=== PATIENT | female | born 1995 | race Hispanic/Latino ===

== ENCOUNTER 2018-05-20 02:43 | Emergency (ER) | payer SELFPAY ==
--- OUTSIDE RECORDS SUMMARY | 2018-05-20 02:46 | XMS REPORT ---
:1995 [facility] Address [address] [place] [address] Dr. Khoury [address] [place] [id number] Care Team Providers Name Role Phone Unavailable Unavailable Unavailable Problems This patient has no known problems. Allergies, Adverse Reactions, Alerts This patient has no known allergies or adverse reactions. Medications This patient has no known medications.
[2018-05-20 03:31] LABS: Absolute Lymphocytes (CBC) 0.6 K/uL (0.7-4.9); Absolute Monocytes 0.4 K/uL (0.1-1.3); Basophils % 0.2 % (0-1.3); Eosinophils % 0.2 % (0-4.4); Hematocrit 38.6 % (36.0-45.0); MPV 7.9 fL (7.6-11.3); Monocytes % 6.8 % (3.3-12.3); RBC Red Blood Cell Count 4.24 M/uL (3.86-4.86)
[2018-05-20 03:47] LABS: ALT/SGPT 18 U/L (12-78); AST/SGOT 17 U/L (15-37); Albumin 3.9 g/dL (3.4-5.0); Alkaline Phosphatase 53 U/L (45-117); BUN Blood Urea Nitrogen 7 mg/dL (7-18); Bicarbonate 23 mmol/L (21-32); Bilirubin Direct 0.1 mg/dL (0-0.2); Bilirubin Total 0.4 mg/dL (0.2-1.0); CKMB Creatine Kinase MB < 1.0 ng/mL (0.3-3.6); Creatine Phosphokinase 129 U/L (26-192); Glucose Level 110 mg/dL (74-106); Lipase 117 U/L (73-393); Potassium 3.5 mmol/L (3.5-5.1); Protein, Total 7.1 g/dL (6.4-8.2); Sodium Level 141 mmol/L (136-145); Troponin (Emerg Dept Use Only) < 0.02 ng/mL (0.0-0.045)
[2018-05-20] MEDS ORDERED: LIDOCAINE VISCOUS 2% SOLN 15 ML UDC ONE (04:47)
[2018-05-20] MEDS ORDERED: FAMOTIDINE 20 MG/2 ML VIAL IV ONE (04:47)
[2018-05-20] MEDS ORDERED: MAGNE/ALUM HYDROXD 30 ML UCUP ONE (04:47)
--- NOTE | 2018-05-20 05:30 | ER ---
Nurse's Notes [facility] Name: Alexx Ceballos Age: 22 yrs Sex: Female : 1995 Arrival Date: 05/20/2018 Time: 02:44 Bed 5 Private MD: Diagnosis: Gastritis, unspecified, without bleeding Presentation: 05/20 03:02 Presenting complaint: Patient states: intermittent central chest pain X1 day. pt c/o ak1 intermittent bilateral hand numbness X2 days. pt c/o headache X2 days. Transition of care: patient was not received from another setting of care. Onset of symptoms is unknown. Risk Assessment: Do you want to hurt yourself or someone else? Patient reports no desire to harm self or others. Initial Sepsis Screen: Does the patient meet any 2 criteria? No. Patient's initial sepsis screen is negative. Does the patient have a suspected source of infection? No. Patient's initial sepsis screen is negative. Care prior to arrival: None. 03:02 Method Of Arrival: Ambulatory ak1 03:02 Acuity: GUSTAVO 3 ak1 Triage Assessment: 03:04 Headache History: The patient has had previous headaches and this one is similar to ak1 previous episodes. General: Appears in no apparent distress. Behavior is calm, cooperative. Pain: Complains of pain in headache, chest, bilateral hands. Pain: Pain currently is 8 out of 10 on a pain scale. Pain began 2-3 days ago. Is intermittent, Also complains of sleeplessness. EENT: No deficits noted. Neuro: Level of Consciousness is awake, alert, obeys commands, Oriented to person, place, time, situation, Ballistics Expert are equal bilaterally Moves all extremities. Gait is steady, Speech is normal, Facial symmetry appears normal. Cardiovascular: Reports chest pain. Respiratory: No deficits noted. GI: No signs and/or symptoms were reported involving the gastrointestinal system. : No signs and/or symptoms were reported regarding the genitourinary system. Derm: No signs and/or symptoms reported regarding the dermatologic system. Musculoskeletal: No signs and/or symptoms reported regarding the musculoskeletal system. 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 - Social history:: Smoking status: Patient/guardian denies using tobacco. - Ebola Screening: : No symptoms or risks identified at this time. Screenin:09 Abuse screen: Denies threats or abuse. Denies injuries from another. Nutritional lp1 screening: No deficits noted. Tuberculosis screening: No symptoms or risk factors identified. Fall Risk None identified. Assessment: 03:08 General: Appears in no apparent distress. Behavior is anxious. Pain: Complains of pain lp1 in chest and epigastric area Pain currently is 8 out of 10 on a pain scale. Neuro: Level of Consciousness is awake, alert, obeys commands. Cardiovascular: Patient's skin is warm and dry. Respiratory: Respiratory effort is even, unlabored. GI: Abdomen is flat, Bowel sounds present X 4 quads. Abdomen is tender to palpation in epigastric area Reports diarrhea. : No signs and/or symptoms were reported regarding the genitourinary system. EENT: No signs and/or symptoms were reported regarding the EENT system. Derm: Skin is pink, warm \T\ dry. Musculoskeletal: No deficits noted. Vital Signs: 03:04 BP 115 / 91; Pulse 95; Resp 18; Temp 100.4(O); Pulse Ox 99% on R/A; Weight 59.87 kg ak1 (R); Height 5 ft. 2 in. (157.48 cm) (R); Pain 8/10; 06:18 BP 98 / 56; Pulse 63; Resp 16; Temp 97.8; Pulse Ox 100% on R/A; ak1 03:04 Body Mass Index 24.14 (59.87 kg, 157.48 cm) ak1 ED Course: 02:44 Patient arrived in ED. do 03:03 Triage completed. ak1 03:04 Arm band placed on Patient placed in an exam room, on a stretcher, on rn cardiac, ak1 on pulse oximetry, Patient notified of wait time. EKG completed in triage. Results shown to MD. 03:05 Jose Raul Cunningham MD is Attending Physician. tw4 03:07 Tea Liz, RN is Primary Nurse. lp1 03:09 Patient has correct armband on for positive identification. Placed in gown. Pulse ox lp1 on. NIBP on. 03:26 Inserted saline lock: 20 gauge in right antecubital area, using aseptic technique. oe Blood collected. 03:27 Flu Sent. oe 06:19 No provider procedures requiring assistance completed. IV discontinued, intact, ak1 bleeding controlled, No redness/swelling at site. Pressure dressing applied. Administered Medications: 04:39 Drug: GI Cocktail without - (Maalox Suspension 30 ml, Lidocaine Liquid 2 % 15 ak1 ml) Route: PO; 05:35 Follow up: Response: No adverse reaction ak1 04:39 Drug: Pepcid 20 mg Route: IVP; Site: right antecubital; ak1 05:35 Follow up: Response: No adverse reaction ak1 05:40 Drug: TORadol 30 mg Route: IVP; Site: right antecubital; ak1 05:40 Follow up: Response: No adverse reaction ak1 Outcome: 05:30 Discharge ordered by . tw4 06:20 Discharged to home ambulatory, with family. ak1 06:20 Condition: good 06:20 Discharge instructions given to patient, family, Instructed on discharge instructions, follow up and referral plans. no drinking with medication, no driving heavy equipment, medication usage, Demonstrated understanding of instructions, follow-up care, medications, Prescriptions given X 1. 06:20 Patient left the ED. ak1 Signatures: Tea Liz, RN RN lp1 Gita Blanco RN RN ak1 Ree Ulloa [place] oe Wadley, Terrence, MD MD tw4
--- NOTE | 2018-05-20 05:30 | EDPHYS ---
Physician Documentation [facility] Name: Alexx Ceballos Age: 22 yrs Sex: Female : 1995 Arrival Date: 05/20/2018 Time: 02:44 Bed 5 Private MD: ED Physician Jose Raul Cunningham HPI: 05/20 04:40 This 22 yrs old Female presents to ER via Ambulatory with complaints of tw4 Headache, Arm Pain, Chest Pain, Tongue Numbness. 04:40 The patient complains of pain to the forehead. The patient describes the headache as tw4 aching. Onset: The symptoms/episode began/occurred today. Associated signs and symptoms: The patient has no apparent associated signs or symptoms. Severity of symptoms: At its worst the pain was moderate, in the emergency department the pain is unchanged. The symptoms are alleviated by nothing. the symptoms are aggravated by nothing. The patient has not experienced similar symptoms in the past. 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 - Social history:: Smoking status: Patient/guardian denies using tobacco. - Ebola Screening: : No symptoms or risks identified at this time. ROS: 04:40 Constitutional: Negative for fever, chills, and weight loss, Eyes: Negative for injury, tw4 pain, redness, and discharge, Cardiovascular: Negative for chest pain, palpitations, and edema, Respiratory: Negative for shortness of breath, cough, wheezing, and pleuritic chest pain, Back: Negative for injury and pain. 04:40 Abdomen/GI: Positive for abdominal pain, Negative for nausea and vomiting, nausea, vomiting, and diarrhea, nausea, vomiting, abdominal cramps, abdominal distension, anorexia, black/tarry stool, rectal pain. Exam: 04:40 Constitutional: This is a well developed, well nourished patient who is awake, alert, tw4 and in no acute distress. Head/Face: Normocephalic, atraumatic. Chest/axilla: Normal chest wall appearance and motion. Nontender with no deformity. No lesions are appreciated. Cardiovascular: Regular rate and rhythm with a normal S1 and S2. No gallops, murmurs, or rubs. Normal PMI, no JVD. No pulse deficits. Respiratory: Lungs have equal breath sounds bilaterally, clear to auscultation and percussion. No rales, rhonchi or wheezes noted. No increased work of breathing, no retractions or nasal flaring. 04:40 Skin: Warm, dry with normal turgor. Normal color with no rashes, no lesions, and no evidence of cellulitis. MS/ Extremity: Pulses equal, no cyanosis. Neurovascular intact. Full, normal range of motion. Neuro: Awake and alert, GCS 15, oriented to person, place, time, and situation. Cranial nerves II-XII grossly intact. Motor strength 5/5 in all extremities. Sensory grossly intact. Cerebellar exam normal. Normal gait. 04:40 Abdomen/GI: Inspection: abdomen appears normal, Bowel sounds: normal, Palpation: moderate abdominal tenderness, in the epigastric area. 04:40 Abdomen/GI: Palpation: tw4 Vital Signs: 03:04 BP 115 / 91; Pulse 95; Resp 18; Temp 100.4(O); Pulse Ox 99% on R/A; Weight 59.87 kg ak1 (R); Height 5 ft. 2 in. (157.48 cm) (R); Pain 8/10; 06:18 BP 98 / 56; Pulse 63; Resp 16; Temp 97.8; Pulse Ox 100% on R/A; ak1 03:04 Body Mass Index 24.14 (59.87 kg, 157.48 cm) ak1 MDM: 03:06 Patient medically screened. tw4 04:40 Differential diagnosis: migraine, neoplasm, subarachnoid bleed, subdural hematoma, tw4 temporal arteritis, trigeminal neuralgia. Data reviewed: vital signs, nurses notes. Counseling: I had a detailed discussion with the patient and/or guardian regarding: the historical points, exam findings, and any diagnostic results supporting the discharge/admit diagnosis, lab results, radiology results. Special discussion: I discussed with the patient/guardian in detail that at this point there is no indication for admission to the hospital. It is understood, however, that if the symptoms persist or worsen the patient needs to return immediately for re-evaluation. 05:22 Data interpreted: Pulse oximetry: Interpretation: normal. Test interpretation: by ED tw4 physician or midlevel provider: ECG, plain radiologic studies. Medication response: GI Cocktail relieved the patient's pain. The symptoms have resolved. Response to treatment: the patient's symptoms have mildly improved after treatment, and as a result, I will discharge patient. Special discussion: Based on the patient's Hx, exam, and Dx evaluation, there is no indication for emergent surgery or inpatient Tx. It is understood by the patient/guardian that if the Sx's persist or worsen they need to return immediately for re-evaluation. 05/20 03:06 Order name: Flu ak1 05/20 03:06 Order name: Basic Metabolic Panel; Complete Time: 04:24 tw4 05/20 04:24 Interpretation: Normal except: CL 108; GLUC 110. tw05/20 03:06 Order name: CBC with Diff; Complete Time: 04:24 tw 05/20 04:24 Interpretation: Normal except: RDW 11.7; LYM% 10.0; OFELIA% 82.8; LYMA 0.6. tw05/20 03:06 Order name: Creatinine for Radiology; Complete Time: 04:25 tw 05/20 04:25 Interpretation: Within normal limits: CRE 0.64. 05/20 03:06 Order name: Hepatic Function; Complete Time: 04:25 05/20 04:25 Interpretation: Within normal limits. 05/20 03:06 Order name: Lipase; Complete Time: 04:25 [facility] 05/20 04:25 Interpretation: Within normal limits: LIP 117. 05/20 03:06 Order name: IV Saline Lock; Complete Time: 03:27 05/20 03:06 Order name: Troponin (emerg Dept Use Only); Complete Time: 04:25 tw4 05/20 03:06 Order name: CK; Complete Time: 04:25 05/20 04:25 Interpretation: Within normal limits: CPK 129. 05/20 03:06 Order name: Ckmb; Complete Time: 05:22 tw4 05/20 05:22 Interpretation: Normal except: CKMB < 1.0. 05/20 03:08 Order name: EKG; Complete Time: 03:08 ak1 05/20 03:06 Order name: Labs collected and sent; Complete Time: 03:27 tw4 05/20 03:07 Order name: EKG - Nurse/Tech; Complete Time: 03:08 ak1 EC:40 Rate is 87 beats/min. Rhythm is regular. QRS [place] is Normal. DC interval is normal. QRS tw4 interval is normal. No Q waves. T waves are Normal. No ST changes noted. Clinical impression: Normal ECG. Interpreted by me. Reviewed by me. Administered Medications: 04:39 Drug: GI Cocktail without - (Maalox Suspension 30 ml, Lidocaine Liquid 2 % 15 ak1 ml) Route: PO; 05:35 Follow up: Response: No adverse reaction ak1 04:39 Drug: Pepcid 20 mg Route: IVP; Site: right antecubital; ak1 05:35 Follow up: Response: No adverse reaction ak1 05:40 Drug: TORadol 30 mg Route: IVP; Site: right antecubital; ak1 05:40 Follow up: Response: No adverse reaction ak1 Disposition: 05/20/18 05:30 Discharged to Home. Impression: Gastritis, unspecified, without bleeding. - Condition is Stable. - Discharge Instructions: Gastritis, Adult. - Prescriptions for Protonix 40 mg Oral Tablet - take 1 tablet by ORAL route once daily; 30 tablet. - Family Work Release, Medication Reconciliation Form, Thank You Letter, Antibiotic Education, Prescription Opioid Use form. - Follow up: Private Physician; When: Upon discharge from the Emergency Department; Reason: If symptoms return, Recheck today's complaints, Continuance of care. - Problem is new. - Symptoms have improved. Signatures: Dispatcher [employer] [facility]NY Gita Blanco RN RN ak1 Jose Raul Cunningham MD MD tw4 Corrections: (The following items were deleted from the chart) 06:20 05:30 05/20/2018 05:30 Discharged to Home. Impression: Gastritis, unspecified, without ak1 bleeding. Condition is Stable. Forms are Medication Reconciliation Form, Thank You Letter, Antibiotic Education, Prescription Opioid Use. Follow up: Private Physician; When: Upon discharge from the Emergency Department; Reason: If symptoms return, Recheck today's complaints, Continuance of care. Problem is new. Symptoms have improved. tw4
[2018-05-20] MEDS ORDERED: KETOROLAC 30 MG/ML INJ ONE (05:50)
--- NOTE | 2018-05-20 07:42 | EKG ---
Test Date: 2018-05-20 Test Time: 03:02:20 Access Services Representative: KASSI MEASUREMENT RESULTS: Intervals: Rate: 87 SC: 136 QRSD: 84 QT: 340 QTc: 409 O'Brien: P: 44 SC: 136 QRS: 74 T: 42 INTERPRETIVE STATEMENTS: Normal sinus rhythm Normal ECG Compared to ECG 06/26/2003 15:53:00 Sinus arrhythmia no longer present Electronically Signed On 05-20-18 07:41:49 CDT by Yuan Jiang
== END 2018-05-20 06:20 | disposition home or self-care (01) ==
LOC: ER 02:43
DX: K29.70 Gastritis, unspecified, without bleeding (principal); Z88.5 Allergy status to narcotic agent
CPT/HCPCS: 36415; 80048; 80076; 82550; 82553; 83690; 84484; 85025; 87804; 93005; 96374; 96375; 99284